=== PATIENT | female | born 2000 ===

== ENCOUNTER 2020-09-10 10:35 | Outpatient (REF) | payer OTHER, SELFPAY ==
[2020-09-10 13:52] LABS: MANUAL DIFF FLAG NO
[2020-09-10 13:59] LABS: Basophils Percent Auto 0.2 % (0-2); Eosinophils Absolute Auto 0.2 X10*3/uL (0.0-0.4); Eosinophils Percent Auto 2.9 % (0-4); Hemoglobin 12.7 g/dl (12.0-16.0); Imm Gran Abs Auto 0.07 X10*3/uL (0.00-0.03); Imm Gran Pct Auto 0.8 % (0.0-0.4); Lymphocytes Absolute Auto 2.5 X10*3/uL (1.2-4.9); Lymphocytes Percent Auto 30.3 % (20-40); Mean Corpuscular HGB Conc 32.6 g/dl (31.0-35.0); Mean Corpuscular Hemoglobin 29.7 pg (27.0-33.0); Mean Corpuscular Volume 91.3 fL (80-98); Mean Platelet Volume 11.8 fL (9.4-12.3); Monocytes Absolute Auto 0.7 X10*3/uL (0.1-1.2); Monocytes Percent Auto 7.8 % (2-11); Neutrophils Absolute Auto 4.8 X10*3/uL (2.0-8.3); Platelet Count 277 X10*3/uL (160-400); Red Blood Count 4.27 X10*6/uL (4.20-5.50); Red Cell Distribution Width 12.5 % (11.0-16.0); White Blood Count 8.3 X10*3/uL (4.8-10.8)
[2020-09-10 14:16] LABS: Cholesterol 159 mg/dL; Glucose Fasting 86 mg/dL (60-99); HDL Cholesterol 45 mg/dL; LDL Cholesterol Calculated 94 mg/dl; Triglycerides 102 mg/dL
[2020-09-10 14:39] LABS: TSH reflex Free T4 1.15 uIU/mL (0.32-4.0)
== END 2020-09-10 10:36 | disposition home or self-care (01) ==
LOC: HO.HMGCLDS 10:35
PROVIDERS: PCP Internal Medicine; Visit Provider Internal Medicine
DX: Z00.00 Encounter for general adult medical examination without abnormal findings (principal); J45.20 Mild intermittent asthma, uncomplicated; E66.9 Obesity, unspecified; Z83.49 Family history of other endocrine, nutritional and metabolic diseases
CPT/HCPCS: 36415; 80061; 82947; 84443; 85025

== ENCOUNTER 2024-04-25 12:59 | Outpatient (AMB) | payer OTHER, SELFPAY ==
--- NOTE | 2024-04-25 13:34 | A.OFFPC_ITS ---
Vital Signs 04/25/24 13:39 Height 5 ft 5 in Weight 223 lb BMI 37.1 BP 106/52 L Blood Pressure Location Rt brachial Position Sitting Respiration 16 Pulse 92 Pulse Source Pulse Oximeter Pulse Oximetry (%) 99 Oxygen Delivery Method Room Air Intake Visit Reasons: Transfer from Dr. Edmondson Intake Note: New patient visit Community Artist Required: No Allergies No Known Allergies Allergy (Verified 04/25/24 13:35) Medication List - Last Reconciled 04/25/24 by Chanel Monterroso PA-C albuterol sulfate 90 mcg/actuation (ProAir HFA) 2 puffs inhalation Q6H PRN aspirin 81 mg PO DAILY docosahexaenoic acid ( DHA) mg PO inhalational spacing device (Aerochamber MV spacer) As directed Tobacco use date assessed: 04/25/24 Dental Screening Dental Screen Date: 04/25/24 Did you have a dental visit in the last 12 months?: No Did you have a dental problem in the last 6 months where you did not have access to dental care?: No Was dental information given to patient?: Patient declined (needs dental insurance) HPI Transfer from Dr. Edmondson HPI Details History of Present Illness The patient is a 24-year-old female presenting with the need to establish care. She has a known history of asthma and a left ovarian cyst (since removed). The patient's current medical circumstances are significantly impacted by her , now at 27 weeks and 5 days gestation. This is her first , and she reports it as uncomplicated, with typical symptoms but no mention of any preexisting complication. She is aware of her due date, set for July 20, and assessments have been reported within normal limits, inclusive of non- anemic status, and negative diabetes screening. Following with cira. Additionally, her mental health screenings returned negative results for depression and anxiety. Health Maintenance - Discussion on vitamins. - Confirmation of regular OBGYN visits a nd satisfactory lab results. - Promotion of maintaining physical acti vity levels. - Discussion on family planning and ewelina stfeeding intentions. 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 - Residence: [place]. - Physical Activity: Maintains an active lifestyle, consistently on her feet. - Family planning considerations due to the cost of childcare. Review of Systems - Respiratory: Reports intermittent asth ma, rarely needs albuterol Physical Exam General: Well developed, well nourished, in no acute distress. Appears stated age. Cardiac: RRR, no murmurs Lungs: clear, equal breath sounds Extremities: no edema Neuro: alert, oriented x3, mood appropriate Plan - Asthma: No current need for an inhaler refill was requested, though she acknowledged breathing difficulty during . - : Continued routine care with OBGYN, due date monitoring, and mental and physical health follow-up plan. - Left Ovarian Cyst: Documented in medic al history; no current intervention required. - Establish primary care: Planned follow -up for a full physical exam after delivery, monitoring recovery, and potential lab work for comprehensive assessment. - Lifestyle recommendations: Continue to maintain an active lifestyle for optimal outcomes and encourage seeking support . - Pharmacological Consideration: Ensure medications align with patient's plans, discussion on consulting support if needed. [facility] Medical History (Updated 04/25/24 @ 13:56 by Chanel Monterroso PA-C) Obesity (BMI 30.0-34.9) Family history of thyroid disease Mild intermittent asthma in adult without complication Left ovarian cyst Surgical History S/P ovarian cystectomy Family History Mother Asthma Sister Asthma Acquired hypothyroidism Social History (Updated 04/25/24 @ 13:42 by Payal Lin CMA) Housing: House Alcohol intake: never Patient Tobacco Use Status: Never used Tobacco e-Cigarette/Vaping Use: Never Used Second Hand Smoke Exposure: No service: No Current occupational status: employed Current occupation: Teacher Current occupational exposures/hazards: No Cognitive needs: No Hearing needs: No Vision needs: Yes (glasses) Female Reproductive History Menstrual Age of Menarche: 9 Questionnaire PHQ-9 Over the last 2 weeks, how often have you been bothered by any of the following problems? 1. Little interest or pleasure in doing things: not at all 2. Feeling down, depressed, or hopeless: not at all 3. Trouble falling or staying asleep, or sleeping too much: not at all 4. Feeling tired or having little energy: not at all 5. Poor appetite or overeating: not at all 6. Feeling bad about yourself - or that you are a failure or have let yourself or your family down: not at all 7. Trouble concentrating on things, such as reading the newspaper or watching television: not at all 8. Moving or speaking so slowly that other people could have noticed. Or the opposite - being so fidgety or restless that you have been moving around a lot more than usual: not at all 9. Thoughts that you would be better off or of hurting yourself in some way: not at all Total score: 0 Depression Screening Interpretation: Negative Depression Screening Done: Yes 68281 - PHQ-9 Billing: Yes Source: Developed by Drs. Michael Sinclair, Nohemy Moreno, Dewayne Bueno and colleagues, with an educational power from [employer]. Thrive Questionnaire Date Thrive assessed: 04/23/24 I am a: Patient What is your living situation today?: I have a steady place to live Within the past 12 months, did the food you bought not last and you didn't have the money to get more?: Never true Within the past 12 months, did you worry whether your food would run out before you got money to buy more?: Never true Do you have trouble paying for medicines?: No Do you have trouble getting transportation to medical appointments?: No Do you have trouble paying your heating and electricity bill?: No Do you have trouble taking care of your child, family member or friend?: No Do you have trouble with day-to-day activities such as bathing, preparing meals, shopping, managing finances, etc.?: No Are you currently unemployed and looking for a job?: No Are you interested in more education?: No Please select the resources that you would like help with: None Currently or been in a relationship where the following occur: No concerns reported THRIVE Score: 0 AUDIT C Alcohol Use Questionnaire (AUDIT-C) 1. How often do you have a drink containing alcohol?: Never 3. How often do you have six or more drinks on one occasion?: Never Total Score: 0 DEEPTHI-7 AMB Questionnaire DEEPTHI-7 Date DEEPTHI - 7 assessed: 04/25/24 Feeling nervous, anxious, or on edge: 0 = Not at all Not being able to stop or control worryin = Not at all Worrying too much about different things: 0 = Not at all Trouble relaxin = Not at all Being so restless that it is hard to sit still: 0 = Not at all Becoming easily annoyed or irritable: 0 = Not at all Feeling afraid as if something awful might happen: 0 = Not at all Total DEEPTHI-7 score (0-4 normal; 5-9 mild; 10-14 moderate; 15-21 severe): 0 Source: Developed by Drs. Michael Sinclair, Nohemy Moreno, Dewayne Bueno and colleagues, with an educational power from [employer]. DEEPTHI-7 Assessment Billing DEEPTHI-7 Assessment Tool: DEEPTHI-7 Assessment 77955 Physical exam (Primary Care) Tobacco/Smoking Status: Tobacco use Status Tobacco use date assessed 04/25/24 04/25/24 13:36 Patient Tobacco Use Status Never used Tobacco 04/25/24 13:42 e-Cigarette/Vaping Use Never Used 04/25/24 13:42 PHQ-9: PHQ-9 Score PHQ-9: Total score 0 04/25/24 13:36 Depression Screening Interpretation: Negative Thrive Assessment: Date of Thrive Assessment Date Thrive assessed 04/23/24 04/25/24 13:36 Currently or been in a relationship where the following occur: No concerns reported Coding Level of Care Code New Pt Level 3 (20576) Complex EM visit Add On G2211 Diagnoses 27 weeks gestation of Z3A.27 Mild intermittent asthma in adult without complication J45.20 Additional Codes DEEPTHI-7 Assessment Billing - DEEPTHI-7 Assessment Tool: DEEPTHI-7 Assessment 96188 ([id number]) PHQ-9 - 10087 - PHQ-9 Billing: Yes ([id number]) Assessment & Plan Assessment & Plan (1) 27 weeks gestation of : Code(s): Z3A.27 - 27 weeks gestation of Category: Medical (2) Mild intermittent asthma in adult without complication: Code(s): J45.20 - Mild intermittent asthma, uncomplicated Category: Medical Plan . Orders: Orders Complete Blood Count Auto Diff Today Z00.00 - Encounter for general adult medical examination without abnormal findings TSH reflex Free T4 Today Z00.00 - Encounter for general adult medical examination without abnormal findings Comprehensive [place]. Panel Fast Today Z00.00 - Encounter for general adult medical examination without abnormal findings Lipid Panel Today Z00.00 - Encounter for general adult medical examination without abnormal findings Medications: Changed From albuterol sulfate 90 mcg/actuation (ProAir HFA) 2 puffs inhalation Q6H PRN 8.5 grams 2RF shortness of breath or wheezing J45.20 - Mild intermittent asthma, uncomplicated To albuterol sulfate 90 mcg/actuation 2 puffs inhalation Q6H PRN 8.5 grams 2RF shortness of breath or wheezing J45.20 - Mild intermittent asthma, uncomplicated
[2024-04-25 13:39] VITALS: BP 106/52; PULSE 92; RESP 16; O2SAT 99; BMI 37.1
--- OUTSIDE RECORDS SUMMARY | 2024-04-25 15:55 | XMS_ITS | Encounter Summary ---
Author Organization [facility] Address [address] [place] [address] Care Team Providers Care Metal Machinist Name Role Phone Rick Lewis Carolee Primary Care Provider [phone] Reason for Visit * Reason Comments Routine Visit Encounter Details Date Type Department Care Team (Late st Contact Info) Description 04/25/2024 9:30 AM EST [facility] [address] [place] [phone] Faviola Conway CNM [address] [place] [address] Encounter for supervision of normal first in second trimester (Primary Dx); Rh negative state in antepartum period; 27 weeks gestation of Social History Tobacco Use Types Packs/Day Years Used Date Smoking Tobacco: Never Smokeless Tobacco: Never Alcohol Use Standard Drinks/Week Comments Not Currently 0 (1 standard drink = 0.6 oz pur e alcohol) Estimated Date of Delivery Comme nts Yes 07/20/2024 Based on last me nstrual period of 10/14/2023 Sex and Gender Information Value Date Recorded Sex Assigned at Not on file Legal Sex Female 11:41 AM EDT Gender Identity Not on file Sexual Orientation Not on file Occupation Industry Job Start Date Job End Date teacher Not on file Not on file Not on file documented as of this encounter Last Filed Vital Signs Vital Sign Reading Time Taken Comments Blood Pressure 118/70 04/25/2024 9:20 AM EST Pulse - - Temperature - - Respiratory Rate - - Oxygen Saturation - - Inhaled Oxygen Concentration - - Weight 100 kg (221 lb 6.4 oz) 04/25/2024 9:20 AM EST Height - - Body Mass Index 36.84 01/20/2024 5:03 PM EST documented in this encounter Progress Notes * Faviola Conway CNM - 04/25/2024 9:30 AM EST OB Visit: 24 y.o. old female at 27w5d. Doing well. Appropriate FM. No LOF/VB/cramping. Her only new concern is none. Otherwise healthy . Her BP is reviewed and is Normal. Tdap was offered and accepted. This patient has not received Tdap during this . This patient has received syphilis t esting during this . This patient does not require a urine drug screen. Desires Tubal: No . Signs and symptoms of labor reviewed including reasons to call triage. Problem List reviewed and updated. RTO 2 weeks. Completing 28 wk labs today - after lab work will come back and receive rhogam [place] Depression Scale: In the Past 7 Days I have been able to laugh and see the funny side of things.: As much as I always could I have looked forward with enjoyment to things.: As much as I ever did I have blamed myself unnecessarily when things went wrong.: Not very often I have been anxious or worried for no good reason.: No, not at all I have felt scared or panicky for no good reason.: No, not at all Things have been getting on top of me.: No, most of the time I have coped quite well I have been so unhappy that I have had difficulty sleeping.: Not at all I have felt sad or miserable.: Not very often I have been so unhappy that I have been crying.: No, never The thought of harming myself has occurred to me.: Never [place] Depression Scale Total: 3 [place] SCREENING CHARGE (Clinic Only): [id number] Faviola Conway CNM on 04/25/2024 at 9:37 AM EST documented in this encounter Plan of Treatment Upcoming Encounters Date Type Department Care Team (Late st Contact Info) Description 05/11/2024 9:00 AM EDT Routine [facility]st[facility] [place] [phone] [facility] Conway [facility]M [address] [facility] [place] [address] 05/25/2024 9:00 AM EDT Routine Obstetrics [facility]necology [facility] [address] [phone] Faviola Conway CNM [address] [place] [address] 06/07/2024 9:00 AM EDT Routine Obstetrics [facility]necology - [facility] [place] [phone] Faviola Conway CNM [address] [place] [address] 06/22/2024 9:15 AM EDT Routine [facility] [place] [phone] Faviola Conway CNM [address] [place] [address] 06/28/2024 9:00 AM EDT Routine Obstetrics and [facility]necology - [facility] [address] [phone] Faviola Conway CNM [address] [place] [address] 07/06/2024 9:00 AM EDT Routine Obstetrics [facility]necology - [facility] [address] [place] [phone] Sophia Marin [address] [address] 07/13/2024 9:00 AM EDT Routine Obstetrics and Gynecology - [address] [phone] [address] 07/20/2024 9:00 AM EDT Routine Obstetrics and Gynecology - [address] [phone] Faviola Conway [address] [address] documented as of this encounter Results * Antibody screen (04/25/2024 10:16 AM EST) Antibody Screen Negative 04/25/2024 3:53 PM EST [facility] Blood Venous blood specimen / Unknown Venipuncture / Unknown 04/25/2024 10:16 AM EST 04/25/2024 10:16 AM EST us Faviola Conway [facility] BLOOD BANK TEST ORDERAB LES Final Result [facility] [address] [place] [address], documented in this encounter Visit Diagnoses Diagnosis Encounter for supervision of normal first in second trimester- Primary Rh negative state in antepartum period 27 weeks gestation of documented in this encounter Orders Immunization/Injection Count Last Ordered Date First Ordered Date TDAP TETANUS DIPTHERIA ACELL ULAR PERTUSSIS (BOOSTRIX; ADACEL) 7YO AND OLDER 1 04/25/2024 documented in this encounter Care Teams Metal Machinist Relationship Specialty Start Date End Date Carolee Duncan [address] [place] [address] PCP - General 02/15/24 documented as of this encounter
--- OUTSIDE RECORDS SUMMARY | 2024-04-25 15:55 | XMS_ITS | Clinical Summary ---
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 Medications PNV no.95/ferrous fum/folic ac ( ORAL) Vit-Fe Fumarate-FA ( Vitamin) 27-0.8 MG Tab Take 1 Tablet by mouth daily. Active aspirin 81 mg EC tabletIndication s:Obesity affecting in first trimester, unspecified obesity type Take 2 tablets (162 mg total) by mouth 1 (one) time each day. 60 tablet 3 4 07/02/19 25 Active Active Problems Problem Noted Date Diagnosed Date Urinary tract infection in m other during second trimester of 02/02/2024 Overview (02/02/2024): 01/20/24 treated in the ER with Keflex. 02/02/24 - reports no change in sx, urine culture collected Encounter for supervision of normal first in first trimester 01/23/2024 Overview (03/15/2024): 1. [facility] site: [address] 2. Delivery site: [facility] 3. Mobile Mommas: 4. Dating criteria: LMP only 5. Blood type: A-Negative 6. Genetic screening: Date: Result: Panorama: low risk, XY Horizon:ordered Nuchal: 01/12/2024 at 1:45pm Survey: normal MSAFP: negative 6. GBS: Date: 7. FOB name: Wade Patel, 8. Plans A. Epidural or other pain management - B. Labor support identified - Wade, her mom and his mom C. Tdap - Date: Flu - Date: D. Breast or Bottle feed: breast E. Baby's name - F. Circumcision - yes if male 9. Hospital Course: Rh negative state in antepartum period Overview (04/25/2024): Images from the original note were not included. A-Negative 04/25/24 - rhogam at 27w5d Maternal varicella, non-immune 12/23/2023 Obesity affecting 12/21/2023 Overview (01/03/2024): Pre-Preg BMI 35.61 HgbA1C and 1 hour GTT at initial labs: ordered 12/21/23 1hr Gluc 78 12/21/23 HgbA1c: 4.7 ASA 162mg at 12 weeks until delivery : to be ordered at IP visit Detailed anatomy ultrasound Repeat GTT 24-28 weeks if early is normal Pre-pre BMI 35-39.9: NST weekly at 37 weeks Pre-preg BMI >40: NST weekly at 34 weeks Pre-preg BMI >45: NST weekly at 32 weeks Growth US at 32 and 36 weeks for BMI >40 BMI of 50 by 28wks transfer to [facility] DVT prophylaxis- Lovenox if CS and BMI >35 Estimated Date of Delivery Comme nts Yes 07/20/2024 Based on last me nstrual period of 10/14/2023 Encounters Date Type Department Care Team Description 04/25/2024 9:30 AM EST Routine Obstetrics and Gynecology - [facility] [address] [place] [address] Faviola Conway CNM Encounter for supervision of normal first in second trimester (Primary Dx); Rh negative state in antepartum period; 27 weeks gestation of 03/27/2024 11:00 AM EST Routine Obstetrics and Gynecology - [address] [address] Sophia Marin CNM 23 weeks gestation of (Primary Dx); Encounter for supervision of normal first in second trimester; Encounter for screening of mother 03/15/2024 2:00 PM EST Ancillary Procedure Maternal Medicine - [address] [address] Encounter for anatomic survey 02/28/2024 9:00 AM EST Routine Obstetrics and Gynecology - [address] [address] Sophia Marin CNM Encounter for supervision of normal first in second trimester (Primary Dx); 19 weeks gestation of 02/08/2024 Telephone Obstetrics and Gynecology - [address] [address] Faviola Conway CNM Lab Results 02/02/2024 11:30 AM EST Routine Obstetrics and Gynecology - [address] [address] Faviola Conway CNM Encounter for supervision of normal first in second trimester (Primary Dx); Urinary tract infection in mother during second trimester of ; 15 weeks gestation of 02/02/2024 Telephone Obstetrics and Gynecology - [address] [address] Sophia Marin CNM Forms/questionnaires from Last 3 Months Immunizations Name Administration Dates Next Due Rho (D) Immune Globulin 04/25/2024 Tdap Tetanus diptheria acell ular pertussis (Boostrix; Adacel) 7yo and older 04/25/2024 Surgical History Surgery Date Site/Laterality Comments OTHER SURGICAL HISTORY PROCEDURE: MS DRAINAGE OVARIAN CYST UNI/BI SPX ABDOMINAL; COMMENT: 2017 TONSILLECTOMY PROCEDURE: HISTORICAL TONSILLECTOMY; COMMENT: as a child Medical History Medical History Date Comments Mild intermittent asthma, uncomplicated DX:Mild intermittent asthma, uncomplicated; COMMENT: albuterol prn Ovarian cyst DX:Ovarian cyst; COMMENT: left - s/p surgery 2017 Family History Medical History Relation Name Comments Breast cancer Aunt maternal aunt No Known Problems Father No Known Problems Half-Brother 1 Steven No Known Problems Half-Brother 2 Rom No Known Problems Half-Brother 3 No Known Problems Half-Sister 1 Anu No Known Problems Half-Sister 2 No Known Problems Half-Sister 3 Other: AIDS Maternal Grandfather Other: AIDS Maternal Grandmother Asthma Mother Dementia Paternal Grandmother Other: syphilis Paternal Grandmother Asthma Sister Griselda Thyroid disease Sister Griselda Cervical cancer Neg Hx Colon cancer Neg Hx Esophageal cancer Neg Hx Ovarian cancer Neg Hx Pancreatic cancer Neg Hx Prostate cancer Neg Hx Stomach cancer Neg Hx Uterine cancer Neg Hx Relation Name Status Comments Aunt Alive Father Alive Half-Brother 1 Steven Alive share mom Half-Brother 2 Rom Alive share dad Half-Brother 3 Alive share dad Half-Sister 1 Anu Alive share mom Half-Sister 2 Alive share dad Half-Sister 3 Alive share dad Maternal Grandfather Maternal Grandmother Mother Alive Paternal Grandfather Paternal Grandmother Alive Sister Griselda Alive Social History Tobacco Use Types Packs/Day Years [...] file Not on file Not on file Obstetrics History Para Term AB IAB SAB Ectopic Multiple Livin g Live Births 1 Date Outcome GA Total Labor Labor/2nd/3rd Weight Sex Type Anes PTL Hui A1 A5 Name Clin Current Summary Episode Dates Number of Fetuses Estimated Date of Delivery 01/03/2024 - Present (04/25/2024) 07/20/2024 (set by Blanca Zendejas MA on 01/03/2024 based on Last Menstrual Period on 10/14/2023) Dating Summary Based On BERTHA GA Diff Last Menstrual Period on 10/14/2023 07/20/2024 Working Vitals Pregravid Weight Height TWG (As of 04/25/2024) Pregrav id BMI 96.9 kg (213 lb 9.6 oz) 3.538 kg (7 lb 12 .8 oz) Notes Progress Notes - Routine Pre leslie - 04/25/2024 - GA:27w5d 04/25/2024 - 27w5d - Faviola Conway CNM OB Visit: 24 y.o. old female at 27w5d. Doing well. Appropriate FM. No LOF/VB/cramping. Her only new concern is none. Otherwise healthy . Her BP is reviewed and is Normal. Tdap was offered and accepted. This patient has not received Tdap during this . This patient has received syphilis testing during this . This patient does not require a urine drug screen. Desires Tubal: No . Signs and symptoms of labor reviewed including reasons to call triage. Problem List reviewed and updated. RTO 2 weeks. Completing 28 wk labs today - after lab work will come back and receive rhogam [place] Depression Scale: In the Past 7 Days [...] harming myself has occurred to me.: Never [place] Depression Scale Total: 3 [place] SCREENING CHARGE (Clinic Only): [id number] Faviola Conway CNM on 04/25/2024 at 9:37 AM EST Progress Notes - Routine Pre - 03/27/2024 - GA:23w4d 03/27/2024 - - Sophia Marin CNM Subjective Chief Complaint Patient presents with Routine Visit Laurie Huizar is a 24 y.o. at 23w4d with a working estimated date of delivery of 07/20/2024, by Last Menstrual Period who presents for a routine visit. She denies vaginal bleeding, leakage of fluid, decreased movements, or contractions. Reports some bilateral lower abdominal pain and constipation for about 1 month. States she has tried prune juice and laxatives without relief. States she is hydrating well. HPI Review of Systems The following portions of the patient's chart were reviewed in this encounter and updated as appropriate: Allergies Objective Physical Exam Weight: 98.7 kg (217 lb 9.6 oz) Expected Total Weight Gain: 5 kg (11 lb)-9 kg (19 lb) Pregravid BMI: 35.54 BP: 128/81 OBGyn Exam Labs Urine dip: , , , Hemoglobin Date Value Ref Range Status 01/20/2024 12.4 11.5 - 16.0 g/dL Final Hematocrit Date Value Ref Range Status 01/20/2024 36.2 35.0 - 47.0 % Final No results found for: PAPPA , AFP , HCG , ESTRIOL , INHBA No results found for: GLUF , GLUT1 , [id number] , [id number] Assessment/Plan 23 weeks gestation of (Primary) Encounter for supervision of normal first in second trimester - CBC and differential; Future - Glucose tolerance test, 1h gestation; Future Encounter for screening of mother - Treponema pallidum antibody with reflex to RPR and particle agglutination; Future Progress Notes - Routine Pre - 02/28/2024 - GA:19w4d 02/28/2024 - - Sophia Marin CNM Subjective Chief Complaint Patient presents with Routine Visit Laurie Huizar is a 24 y.o. at 19w4d with a working estimated date of delivery of 07/20/2024, by Last Menstrual Period who presents for a routine visit. She denies vaginal bleeding, leakage of fluid, decreased movements, or contractions. Boy, circ, breast and bottle Review of Systems: normal The following portions of the patient's chart were reviewed in this encounter and updated as appropriate: Allergies Meds Objective Physical Exam Weight: 98.3 kg (216 lb 12.8 oz) Expected Total Weight Gain: 5 kg (11 lb)-9 kg (19 lb) Pregravid BMI: 35.54 BP: 106/64 Heart Rate: 145 Fundal Height (cm): 19 cm OBGyn Exam Labs Urine dip: , , , Hemoglobin Date Value Ref Range Status 01/20/2024 12.4 11.5 - 16.0 g/dL Final Hematocrit Date Value Ref Range Status 01/20/2024 36.2 35.0 - 47.0 % Final No results found for: PAPPA , AFP , HCG , ESTRIOL , INHBA No results found for: GLUF , GLUT1 , [id number] , [id number] Assessment/Plan Encounter for supervision of normal first in second trimester (Primary) 19 weeks gestation of Progress Notes - Routine Pre leslie - 02/02/2024 - GA:15w6d 02/02/2024 - 15w6d - Faviola Conway CNM OB Visit: 24 y.o. old female at 15w6d. Doing well. no FM yet. No LOF/VB/cramping. Her only new concern is was seen in the ER 01/20/24 for pelvic/ back pain - had UTI, sent with Keflex, completed ABX but continues to have sx, urine culture ordered, hortensia treat with appropriate ABX. Otherwise healthy . Her BP is reviewed and is Normal. Aneuploidy screening reviewed; it is Normal. MSAFP ordered. To complete between 16-22 wks. She does not require a urine drug screen. Signs and symptoms of labor reviewed including reasons to call triage. Problem List reviewed and updated. RTO 4 weeks. Faviola Conway CNM on 02/02/2024 at 11:31 AM EST Progress Notes - Initial Pre - 01/03/2024 - GA:11w4d 01/03/2024 - w4d - Faviola Conway CNM OB 12 week appt IP: S: Laurie is a 23 y.o. year old here for IP visit with her self . Her is unplanned. She and the father of the baby are happy. Patient's last menstrual period was 10/14/2023. She is certain of her LMP with regular cycles. is currently dated by LMP only. She complains of back pain. Hx of back pain, intermittent. She denies vaginal bleeding or cramping. Flu vaccine: exception : will offer at CT FHR 150's via doppler S=D O: Blood pressure 131/79, weight 97.6 kg (215 lb 3.2 oz), last menstrual period 10/14/2023. See OB physical and labs. No results found for: ABORH - A neg No results found for: RH A: at 11w4d weeks gestation. 1. Supervision of normal first , antepartum 2. Obesity affecting in first trimester, unspecified obesity type 3. Screening examination for STD (sexually transmitted disease) 4. 11 weeks gestation of 5. Rh negative state in antepartum period P: Pap obtained today. Genprobe obtained today. Advised to start bASA at 12 wks for risk factors - primip and pre preg BMI Oriented to THoNE MG and anticipated course. Discussed collaborative practice and [facility] delivery. Reviewed healthy eating and normal weight gain in . Encouraged patient to push PO fluids. Counseled about warning signs of the first trimester and how to contact personal service representative provider. Discussed the benefits of breast feeding and strongly encouraged to consider this. Counseled regarding the diagnosis of anomalies. She was offered a referral to maternal medicine for nuchal lucency/[place] testing. She accepts the referral. Scheduled 01/12/24 RTO 4 weeks. The patient does not require anesthesia consult. This patient's VTE risk status is low. Faviola Conway CNM on 01/03/2024 at 10:21 AM EST Last Filed Vital Signs Vital Sign Reading Time Taken Comments Blood Pressure 118/70 04/25/2024 9:20 AM EST Pulse 76 01/21/2024 5:26 AM EST Temperature 36.9 ??C (98.4 ??F) 01/21/2024 5:26 AM ES T Respiratory Rate 18 01/21/2024 5:26 AM EST Oxygen Saturation 99% 01/21/2024 5:26 AM EST Inhaled Oxygen Concentration - - Weight 100 kg (221 lb 6.4 oz) 04/25/2024 9:20 AM EST Height 165.1 cm (5' 5 ) 01/20/2024 5:03 PM EST Body Mass Index 36.84 01/20/2024 5:03 PM EST Plan of Treatment Upcoming Encounters Date Type Department Care Team (Late st Contact Info) Description 05/11/2024 9:00 AM EDT Routine Obstetrics [facility]necology - [facility] [address] [place] [address] Faviola Conway CNM [address] [facility] [place] [address] 05/25/2024 9:00 AM EDT Routine Obstetrics and Gynecology - [facility] [address] [place], [place] [address] [phone] Faviola Conway CNM [address] [facility] [place] [place] [address] 06/07/2024 9:00 AM EDT Routine Obstetrics and Gynecology - [facility] [address] [facility] [place] [place] [phone] Faviola Conway CNM [address] [facility] [place] [address] 06/22/2024 9:15 AM EDT Routine Ob[facility]s [facility] - [facility] [phone] [address] 06/28/2024 9:00 AM EDT Routine Obstetrics and Gynecology - [facility] [address] [address] 07/06/2024 9:00 AM EDT Routine Obstetrics and Gynecology - [facility] [phone] [address] 07/13/2024 9:00 AM EDT Routine Obstetrics and Gynecology - [facility] [phone] [address] 07/20/2024 9:00 AM EDT Routine [facility] [address] [place] [address] [address] Health Maintenance Due Date Last Done Comments HPV Vaccines (1 - 3-dose series) 01/26/2015 Hepatitis B Vaccines (1 of 3 - 19+ 3-dose series) 01/26/2019 COVID-19 Vaccine (2023-2 5 season) 2023 Influenza Vaccine (#1) 2023 Cholesterol Screening (Lipid Panel) 12/16/2023 Depression Screening 12/16/2023 Hepatitis C Screening 12/16/2023 Social Influencers of Health Screening 12/16/2023 Gonorrhea/Chlamydia Screening 01/02/2025 01/03/2024 Cervical Cancer Screening: P ap Smear 01/02/2027 01/03/2024 DTaP,Tdap,and Td Vaccines (2 - Td or Tdap) 04/25/2034 04/25/2024 HIV Screening Completed 12/21/2023 HIB Vaccines Aged Out No longer eligi ble based on patient's age to complete this topic Hepatitis A Vaccines Aged Out No long er eligible based on patient's age to complete this topic IPV Vaccines Aged Out No longer eligi ble based on patient's age to complete this topic Meningococcal ACWY Vaccine Aged Out N o longer eligible based on patient's age to complete this topic Meningococcal B Vacine Aged Out No lo nger eligible based on patient's age to complete this topic Pneumococcal Vaccine: Pediat rics (0 to 5 Years) and At-Risk Patients (6 to 64 Years) Aged Out No longer eligi ble based on patient's age to complete this topic RSV Immunization Patients Un inocencia 20 months Aged Out No longer eligible b ased on patient's age to complete this topic Procedures Procedure Name Priority Date/Time Associated Diagnosis Comments CBC WITH AUTO DIFFERENTIAL Routine 04/25/2024 10:16 AM EST Encounter for supervision of normal first in second trimester GTT GESTATIONAL 1 HOUR Routine 10:16 AM EST Encounter for supervision of normal first in second trimester TREPONEMA PALLIDUM ANTIBODY WITH REFLEX TO RPR AND PARTICLE AGGLUTINATION Routine 04/25/2024 10:16 AM EST Encounter for screening of mother CBC AND DIFFERENTIAL Routine 04/25/2024 10:16 AM EST Encounter for supervision of normal first in second trimester GLUCOSE TOLERANCE TEST, 1H GESTATION Routine 04/25/2024 10:16 AM EST Encounter for supervision of normal first in second trimester ANTIBODY SCREEN Routine 04/25/2024 10:16 AM EST Rh negative state in antepartum period US OB DETAILED SINGLE OR FIRST GESTATION Routine 03/15/2024 2:41 PM EST Encounter for anatomic survey ALPHA FETOPROTEIN, MATERNAL Routine 02/02/2024 11:59 AM EST Encounter for supervision of normal first in second trimester CULTURE URINE Routine 02/02/2024 11:59 AM EST Urinary tract infection in mother during second trimester of PAP SMEAR Routine 01/03/2024 11:44 AM EST Screening for cervical cancer CHLAMYDIA TRACHOMATIS AND NEISSERIA GONORRHOEAE PCR Routine 01/03/2024 11:44 AM EST Screening examination for STD (sexually transmitted disease) from Last 3 Months or Most Recently Relevant to Health Maintenance Results * Treponema pallidum antibody with reflex to RPR and particle agglutination (04/25/2024 10:16 AM EST) T. Pallidum Antibodies Negative Negative LAB CHEMISTRY METHOD 04/25/2024 3:28 PM EST [facility] Blood Venous blood specimen / Unknown Venipuncture / Unknown 04/25/2024 10:16 AM EST 04/25/2024 10:16 AM EST us Sophia MOORE LAB BLOOD ORDERABLES Final R esult [facility] [address] [place] [address], [place] [phone] * GTT gestational 1 hour (04/25/2024 10:16 AM EST) Glucose, 1 HR Gestational 72 See Comment mg/dL LAB CHEMISTRY METHOD 04/25/2024 3:12 PM EST [facility] Blood Venous blood specimen / Unknown Venipuncture / Unknown 04/25/2024 10:16 AM EST 04/25/2024 10:16 AM EST Narrative [facility] - 04/25/2024 3:12 PM EST Gestational Diabetes Challenge Reference Range: 1 hour Glucose <140 mg/dL Sophia MOORE LAB BLOOD ORDERABLES Final R esult [facility] [address] [place] [address], * (ABNORMAL) CBC auto differential (04/25/2024 10:16 AM EST) WBC 10.6 4.8 - 10.8 K/mcL LAB HEMETOLOGY METHOD 04/25/2024 2:44 PM [facility] RBC 3.60(L) 3.80 - 4.80 M/mcL LAB HEMETOLOGY METHOD 04/25/2024 2:44 PM [facility] Hemoglobin 11.3(L) 11.5 - 16.0 g/dL LAB HEMETOLOGY METHOD 04/25/2024 2:44 PM [facility] Hematocrit 34.6(L) 35.0 - 47.0 % LAB HEMETOLOGY METHOD 04/25/2024 2:44 PM [facility] MCV 95.8 79.0 - 98.0 FL LAB HEMETOLOGY METHOD 04/25/2024 2:44 PM [facility] MCH 31.3 27.0 - 32.0 pcg LAB HEMETOLOGY METHOD 04/25/2024 2:44 PM [facility] MCHC 32.7 32.0 - 37.0 g/dL LAB HEMETOLOGY METHOD 04/25/2024 2:44 PM [facility] RDW 13.8 11.0 - 15.0 % LAB HEMETOLOGY METHOD 04/25/2024 2:44 PM [facility] Platelets 200 130 - 400 K/mcL LAB HEMETOLOGY METHOD 04/25/2024 2:44 PM [facility] MPV 11.6(H) 7.0 - 11.0 FL LAB HEMETOLOGY METHOD 04/25/2024 2:44 PM [facility] NRBC 0.0 <1.0 % LAB HEMETOLOGY METHOD 04/25/2024 2:44 PM [facility] NRBC Absolute 0.00 <0.10 K/mcL LAB HEMETOLOGY METHOD 04/25/2024 2:44 PM [facility] Neutrophils Relative 69.9 % LAB HEMETOLOGY METHOD 04/25/2024 2:44 PM [facility] Lymphocytes Relative 16.9 % LAB HEMETOLOGY METHOD 04/25/2024 2:44 PM [facility] Monocytes Relative 6.6 % LAB HEMETOLOGY METHOD 04/25/2024 2:44 PM [facility] Eosinophils Relative 1.9 % LAB HEMETOLOGY METHOD 04/25/2024 2:44 PM [facility] Basophils Relative 0.5 % LAB HEMETOLOGY METHOD 04/25/2024 2:44 PM [facility] Immature Granulocytes Relative 4.2 % LAB HEMETOLOGY METHOD 04/25/2024 2:44 PM [facility] Neutrophils Absolute 7.39(H) 1.50 - 7.00 K/mcL LAB HEMETOLOGY METHOD 04/25/2024 2:44 PM [facility] Lymphocytes Absolute 1.78 1.00 - 5.00 K/mcL LAB HEMETOLOGY METHOD 04/25/2024 2:44 PM [facility] Monocytes Absolute 0.70 0.20 - 1.00 K/mcL LAB HEMETOLOGY METHOD 04/25/2024 2:44 PM [facility] Eosinophils Absolute 0.20 0.00 - 0.50 K/[facility] LAB HEMETOLOGY METHOD 04/25/2024 2:44 PM EST [facility] Basophils Absolute 0.05 0.00 - 0.20 K/[facility] LAB HEMETOLOGY METHOD 04/25/2024 2:44 PM EST [facility] Immature Granulocytes Absolute 0.44(H) 0.00 - 0.03 K/[facility] LAB HEMETOLOGY METHOD 04/25/2024 2:44 PM EST [facility] Blood Venous blood specimen / Unknown Venipuncture / Unknown 04/25/2024 10:16 AM EST 04/25/2024 10:16 AM EST Sophia Marin [facility] BLOOD ORDERABLES Final R esult Performing Organization Address City/[facility]/ZIP Co de Phone Number [facility] [address] [place] [address], [place] [phone] * Antibody screen (04/25/2024 10:16 AM EST) Antibody Screen Negative 04/25/2024 3:53 PM EST [facility] Blood Venous blood specimen / Unknown Venipuncture / Unknown 04/25/2024 10:16 AM EST 04/25/2024 10:16 AM EST Faviola Conway [facility] BLOOD BANK TEST ORDERAB LES Final Result [facility] [address] [place] [address], [place] [phone] * US OB Detailed Single or First Gestation (03/15/2024 2:41 PM EST) Anatomical Region Laterality Modality Body Ultrasound 03/15/2024 1:52 PM EST Narrative 03/15/2024 3:53 PM EST OBSTETRICS REPORT ?(Signed Final 03/15/2024 03:53 pm) PATIENT INFO: ID #: ? [id number] ? : ??[birth year] (24 yrs)(F) Name: ? LAURIE PYLE ?Visit Date: 03/15/2024 01:52 pm ? BHUPENDRA PERFORMED BY: Attending: ?Nickie Canseco MD Performed By: ? Matt Cline RDMS Referred By: ?Faviola Conway C.N.M Ref. Address: ? [address] ? [place] [address] Location: ? [facility] SERVICE(S) PROVIDED: US Level II complete (Targeted OB) ?36870 INDICATIONS: Obesity complicating , 2nd ?O99.212 trimester Morbid obesity ? E66.01 Encounter for screening for ?Z36.3 malformations 21 weeks gestation of ?Z3A.21 TECHNIQUE/SCAN QUALITY: Technique: ?? Transabdominal Scan ? Satisfactory Quality: OB HISTORY: : ?1 ? Term: ?? 0 VITAL SIGNS: Weight (lb) ?? Height ?BMI 216 ? 5'5 ?35.94 EVALUATION: Number Of Fetuses: ? 1 Heart Rate(bpm): ?? 158 Cardiac Activity: ?Observed Presentation: ?Cephalic Placenta Location: ?Posterior Appearance: ?Grade 1 Relation to CVX: ? No previa Cord Insertion: ?Normal appearance Amniotic Fluid MARINA FV: ?Within Normal Limits Comment: ?A >2 x 2 cm pocket of fluid is noted. BIOMETRY: BPD: ?51.8 ??mm ? G.Age: ?? 21w 5d ?42 ??% HC: ?198.5 ??mm ? G.Age: ?? 22w 0d ?46 ??% AC: ?167.2 ??mm ? G.Age: ?? 21w 5d ?38 ??% FL: ? 36.9 ??mm ? G.Age: ?? 21w 5d ?36 ??% HUM: ?37.7 ??mm ? G.Age: ?? 23w 2d ?84 ??% CER: ?23.6 ??mm ? G.Age: ?? 21w 6d ?48 ??% NFT: ?4.01 ??mm NB: ? 6.23 ??mm ? 17 ??% ? > 1 ??MoM LV: ?7.6 ??mm CM: ?7.7 ??mm OOD: ?34.6 ??mm ? G.Age: ?? 20w 5d ?41 ??% CI: ? 69.41 ??% ? 70 - 86 FL/HC: ? 18.6 ??% ? 18.4 - 20.2 HC/AC: ? 1.19 ?1.06 - 1.25 FL/BPD: ?71.2 ??% ? 71 - 87 FL/AC: ? 22.1 ??% ? 20 - Est. FW: ? 449 ??gm ? 1 lb ? 39 ??% GESTATIONAL AGE: LMP: ? 21w 6d ?Date: ??10/14/23 ?BERTHA: ?? 07/20/24 U/S Today: ? 21w 6d ?BERTHA: ?? 07/20/24 Best: ?21w 6d ?? Det. By: ??LMP ??(10/14/23) ?BERTHA: ?? 07/20/24 DETAILED ANATOMY: Head / Neck Cranial Vault: ?Normal appearance Cavum Septi Pellucidi: ??Normal appearance Parenchyma: ? Normal appearance R. Lat. Ventricle: ?Normal appearance L. Lat. Ventricle: ?Normal appearance Corpus Callosum: ?Suboptimal views Midline Falx: ? Normal appearance R. Choroid Plexus: ?Normal appearance L. Choroid Plexus.: ? Normal appearance Cerebellum: ? Normal appearance CCisterna Magna: ?Normal appearance Nuchal Fold: ?Normal appearance Neck: ? Normal appearance Face Face Profile: ? Normal appearance Nasal Bone: ? Normal appearance Coronal Face: ? Normal appearance Lips: ? Normal appearance Nose: ? Normal appearance Lenses: ? Normal appearance Orbits: ? Normal appearance Palate: ? Suboptimal views Heart Cardiac Activity: ? Normal appearance Cardiac Rhythm: ? Normal appearance 4 Chamber View: ? Normal appearance R. Outflow Tract: ? Normal appearance L. Outflow Tract: ? Normal appearance Interventr. Septum: ? Normal appearance 3 Vessel View: ?Normal appearance 3V Trachea View: ?Normal appearance Cardiac Situs: ?Normal appearance Aortic ??Arch: ? Normal appearance SVC: ?Normal appearance IVC: ?Normal appearance Ductal ??Arch: ? Normal appearance Crossing G. Ves.: ? Normal appearance Comment: ? The cardiac axis is 47.21 degrees Thorax Lungs: ?Normal appearance Cardiac [place]: ? Normal appearance Diaphragm: ?Normal appearance Thoracic Contour: ? Normal appearance Abdomen Situs: ?Normal appearance Stomach: ?Normal appearance Bowel: ?Normal appearance Liver: ?Normal appearance Abdominal Wall: ? Normal appearance Urinary Bladder: ?Normal appearance R. Kidney: ?Normal appearance L. Kidney: ?Normal appearance R. Renal Artery: ?Normal appearance L. Renal Artery: ?Normal appearance Umbilical Cord: ? Normal Appearance UC Vessel Num.: ? Normal 3VC Cord Insertion: ? Normal appearance Spine Cervical: ? Normal appearance Thoracic: ? Normal appearance Lumbar: ? Normal appearance Sacral: ? Normal appearance Shape / Curvature: ?Normal appearance Over. Soft Tissue: ?Normal appearance Vertebral Body: ? Normal appearance Extremities R. Humerus: ? Normal appearance L. Humerus: ? Normal appearance R. Forearm: ? Normal appearance L. Forearm: ? Normal appearance R. Hand: ?Normal appearance L. Hand: ?Normal appearance R. Femur: ? Normal appearance L. Femur: ? Normal appearance R. Lower Leg: ? Normal appearance L. Lower Leg: ? Normal appearance R. Foot: ?Normal appearance L. Foot: ?Normal appearance Other Genitalia: ?Male CERVIX UTERUS ADNEXA: Cervix Appears closed Right Ovary Size(cm) ? 3.58 ?? x ?? 2.48 ?? x ??1.79 ?Vol(ml): 8.32 Normal in size and appearance. It is found between the uterus and the pelvic sidewall. Left Ovary Size(cm) ? 3.22 ?? x ?? 3.71 ?? x ??1.38 ?Vol(ml): 8.63 Normal in size and appearance. It is found between the uterus and the pelvic sidewall. COMMENTS: Ms. Huizar is being seen for a detailed ultrasound for a BMI of 35. - Her medical history is not contributory. - She had cell free DNA screening. ??Results are low- risk for all conditions assessed. - Ultrasound findings: The biometry and anatomical survey are appropriate for the gestational age. ??There are no markers of aneuploidy. - The patient declined vaginal ultrasound to assess cervical length for risk of . - Plan: No additional ultrasounds have been scheduled. Follow up as clinically indicated. Nickie Canseco MD Electronically Signed Final Report ?? 03/15/2024 03:53 pm Procedure Note Nickie Canseco MD - 03/15/2024 OBSTETRICS REPORT (Signed Final 03/15/2024 03:53 pm) PATIENT INFO: ID #: [id number] : [birth year] (24 yrs)(F) Name: LAURIE PYLE Visit Date: 03/15/2024 01:52 pm [facility] PERFORMED BY: Attending: Nickie Canseco MD Performed By: Matt Cline [facility] Referred By: Faviola [place] C.N.M Ref. Address: [address] [place] [address] Location: [facility]) SERVICE(S) PROVIDED: US Level II complete (Targeted OB) 92618 INDICATIONS: Obesity complicating , 2nd O99.212 trimester Morbid obesity E66.01 Encounter for screening for Z36.3 malformations 21 weeks gestation of Z3A.21 TECHNIQUE/SCAN QUALITY: Technique: Transabdominal Scan Satisfactory Quality: OB HISTORY: : 1 Term: 0 VITAL SIGNS: Weight (lb) Height BMI 216 5'5 35.94 EVALUATION: Number Of Fetuses: 1 Heart Rate(bpm): 158 Cardiac Activity: Observed Presentation: Cephalic Placenta Location: Posterior Appearance: Grade 1 Relation to CVX: No previa Cord Insertion: Normal appearance Amniotic Fluid MARINA FV: Within Normal Limits Comment: A >2 x 2 cm pocket of fluid is noted. BIOMETRY: BPD: 51.8 mm G.Age: 21w 5d 42 % HC: 198.5 mm G.Age: 22w 0d 46 % AC: 167.2 mm G.Age: 21w 5d 38 % FL: 36.9 mm G.Age: 21w 5d 36 % HUM: 37.7 mm G.Age: 23w 2d 84 % CER: 23.6 mm G.Age: 21w 6d 48 % NFT: 4.01 mm NB: 6.23 mm 17 % > 1 MoM LV: 7.6 mm CM: 7.7 mm OOD: 34.6 mm G.Age: 20w 5d 41 % CI: 69.41 % 70 - 86 FL/HC: 18.6 % 18.4 - 20.2 HC/AC: 1.19 1.06 - 1.25 FL/BPD: 71.2 % 71 - 87 FL/AC: 22.1 % 20 - 24 Est. FW: 449 gm 1 lb 39 % GESTATIONAL AGE: LMP: 21w 6d Date: 10/14/23 BERTHA: 07/20/24 U/S Today: w 6d BERTHA: 07/20/24 Best: w 6d Det. By: LMP (10/14/23) BERTHA: 07/20/24 DETAILED ANATOMY: Head / Neck Cranial Vault: Normal appearance Cavum Septi Pellucidi: Normal appearance Parenchyma: Normal appearance R. Lat. Ventricle: Normal appearance L. Lat. Ventricle: Normal appearance Corpus Callosum: Suboptimal views Midline Falx: Normal appearance R. Choroid Plexus: Normal appearance L. Choroid Plexus.: Normal appearance Cerebellum: Normal appearance CCisterna Magna: Normal appearance Nuchal Fold: Normal appearance Neck: Normal appearance Face Face Profile: Normal appearance Nasal Bone: Normal appearance Coronal Face: Normal appearance Lips: Normal appearance Nose: Normal appearance Lenses: Normal appearance Orbits: Normal appearance Palate: Suboptimal views Heart Cardiac Activity: Normal appearance Cardiac Rhythm: Normal appearance 4 Chamber View: Normal appearance R. Outflow Tract: Normal appearance L. Outflow Tract: Normal appearance Interventr. Septum: Normal appearance 3 Vessel View: Normal appearance 3V Trachea View: Normal appearance Cardiac Situs: Normal appearance Aortic Arch: Normal appearance SVC: Normal appearance IVC: Normal appearance Ductal Arch: Normal appearance Crossing G. Ves.: Normal appearance Comment: The cardiac axis is 47.21 degrees Thorax Lungs: Normal appearance Cardiac [place]: Normal appearance Diaphragm: Normal appearance Thoracic Contour: Normal appearance Abdomen Situs: Normal appearance Stomach: Normal appearance Bowel: Normal appearance Liver: Normal appearance Abdominal Wall: Normal appearance Urinary Bladder: Normal appearance R. Kidney: Normal appearance L. Kidney: Normal appearance R. Renal Artery: Normal appearance L. Renal Artery: Normal appearance Umbilical Cord: Normal Appearance UC Vessel Num.: Normal 3VC Cord Insertion: Normal appearance Spine Cervical: Normal appearance Thoracic: Normal appearance Lumbar: Normal appearance Sacral: Normal appearance Shape / Curvature: Normal appearance Over. Soft Tissue: Normal appearance Vertebral Body: Normal appearance Extremities R. Humerus: Normal appearance L. Humerus: Normal appearance R. Forearm: Normal appearance L. Forearm: Normal appearance R. Hand: Normal appearance L. Hand: Normal appearance R. Femur: Normal appearance L. Femur: Normal appearance R. Lower Leg: Normal appearance L. Lower Leg: Normal appearance R. Foot: Normal appearance L. Foot: Normal appearance Other Genitalia: Male CERVIX UTERUS ADNEXA: Cervix Appears closed Right Ovary Size(cm) 3.58 x 2.48 x 1.79 Vol(ml): 8.32 Normal in size and appearance. It is found between the uterus and the pelvic sidewall. Left Ovary Size(cm) 3.22 x 3.71 x 1.38 Vol(ml): 8.63 Normal in size and appearance. It is found between the uterus and the pelvic sidewall. COMMENTS: Ms. Huizar is being seen for a detailed ultrasound for a BMI of 35. - Her medical history is not contributory. - She had cell free DNA screening. Results are low- risk for all conditions assessed. - Ultrasound findings: The biometry and anatomical survey are appropriate for the gestational age. There are no markers of aneuploidy. - The patient declined vaginal ultrasound to assess cervical length for risk of . - Plan: No additional ultrasounds have been scheduled. Follow up as clinically indicated. Nickie Canseco MD Electronically Signed Final Report 03/15/2024 03:53 pm us Faviola [place] [facility] IMG OB US PROCEDURES Final Result * Alpha fetoprotein, maternal (02/02/2024 11:59 AM EST) Physician Phone Number Not Provided 02/06/2024 1:06 PM EST [facility] Notes to Laboratory Not Provided 02/06/2024 1:06 PM EST [facility] Weight (lbs) 211 02/06/2024 1:06 PM EST [facility] Expected Due Date (MM/DD/YYYY) [id number] 02/06/2024 1:06 PM EST [facility] Expected Due Date Based On? LMP 02/06/2024 1:06 PM EST [facility] Twin ? No - Singletons 02/06/2024 1:06 PM EST [facility] Race Not Provided 02/06/2024 1:06 PM EST [facility] Insulin Dependent Diabetic? No 02/06/2024 1:06 PM EST [facility] Does Patient Currently Smoke Cigarettes? No 02/06/2024 1:06 PM EST [facility] Repeat Screen for Current ? No 02/06/2024 1:06 PM EST [facility] Previous w/ Neural Tube Defect? No 02/06/2024 1:06 PM EST [facility] IVF ? No 02/06/2024 1:06 PM EST [facility] Screen Result Negative Negative 02/06/2024 1:06 PM EST [facility] Age at BERTHA (years) 24 02/06/2024 1:06 PM EST [facility] Gestational Age (weeks) 15 02/06/2024 1:06 PM EST [facility] Gestational Age (days) 3 02/06/2024 1:06 PM EST [facility] Weight (lbs) 211 02/06/2024 1:06 PM EST [facility] Multiple Gestation Single 02/06/2024 1:06 PM EST [facility] Ethnic Origin Not Provided 1:06 PM EST [facility] Insulin Dependent Diabetes None 02/06/2024 1:06 PM EST [facility] Smoker? No 02/06/2024 1:06 PM EST [facility] AFP 21.5 ng/mL 02/06/2024 1:06 PM EST [facility] AFP MOM 0.89 02/06/2024 1:06 PM EST [facility] Gestational Age Method BERTHA 02/06/2024 1:06 PM EST [facility] Comment:The gestational age is based on an BERTHA of 07/23/24. Interpretation SeeBelow 02/06/2024 1:06 PM EST [facility] Comment: This is the initial sample received at [facility] for MSAFP SCREEN NEGATIVE FOR NEURAL TUBE DEFECTS. Additional Test Information: The MSAFP does not provide a risk estimate or a diagnosis. Incorrect or missing information may considerably alter results. A positive report is indicated when the AFP MOM is greater than or equal to 2.20. Maternal weights less than 65 lbs or greater than 440 lbs are truncated and the AFP MOM is not adjusted beyond those limits. Assessment is adjusted for insulin-dependent diabetic status, weight, race and smoking. Previous pregnancies affected with a neural tube defect may significantly affect results. Test performed at [facility], [address] , [place], [place] ??[address] ? [phone] Melody Davalos MD, PhD - Nps Blood Venous blood specimen / Unknown Venipuncture / Unknown 02/02/2024 11:59 AM EST 02/02/2024 12:02 PM EST [facility] Zoraida [facility] BLOOD ORDERABLES Final Result [facility] [address] [place] [address] * Culture urine (02/02/2024 11:59 AM EST) Pathologist [facility] Culture, Urine No growth 02/03/2024 11:28 AM EST [facility] Urine Urine specimen obtained by clean catch procedure / Unknown Non-blood Collection / Unknown 02/02/2024 11:59 AM EST 02/02/2024 12:02 PM EST [facility] MICROBIOLOGY - GENERAL ORDERABLES Final Result [facility] [address] [place] [address], [place] [phone] * Chlamydia trachomatis and Neisseria gonorrhoeae molecular study (01/03/2024 11:44 AM EST) Neisseria gonorrhoeae PCR Negative Negative LAB MOLECULAR DIAGNOSTICS METHOD 01/05/2024 11:32 AM EST [facility] Chlamydia trachomatis PCR Negative Negative LAB MOLECULAR DIAGNOSTICS METHOD 01/05/2024 11:32 AM EST [facility] Swab Vaginal structure / Unknown Non-blood Collection / Unknown 01/03/2024 11:44 AM EST 01/05/2024 8:50 AM EST Faviola [place] [facility] MICROBIOLOGY - GENERAL ORDERABLES Final Result Performing Organization Address City/[facility]/ZIP Co de Phone Number [facility] [address] [place] [address], * Pap smear (01/03/2024 11:44 AM EST) Interpretation Negative for intraepithelial lesion or malignancy 01/12/2024 4:48 PM [facility] General Categorization Negative 01/12/2024 4:48 PM [facility] Specimen Adequacy Satisfactory for evaluation, endocervical/gordillo sformation zone component absent 01/12/2024 4:48 PM [facility] Pap Methodology Liquid Based Pap Test 01/12/2024 4:48 PM [facility] Disclaimer The Pap test is a screening test which carries an inherent false negative rate. These test results should be correlated with the patient's clinical findings and history. This Pap test was processed using an automated screening system. Technical cytopathology services provided by [facility], at [address] [place] [id number] (CLIA # [id number]/Sukhjinder Medellin MD, Nps.) 01/12/2024 4:48 PM [facility] Console Pap Interpretation Reported 01/12/2024 4:48 PM [facility] Brushing/Spatula Cervix uteri structure / Unknown 01/03/2024 11:44 AM EST 01/03/2024 11:44 AM EST Faviola [place] [facility] CYTOLOGY ORDERABLES Fin al Result [facility] [address] [place] [address], from Last 3 Months or Most Recently Relevant to Health Maintenance Insurance [facility] [employer] [facility] Care Teams [employer] Collection System Operator Relationship Specialty Start Date End Date Carolee Duncan [facility] [place] [address] PCP - General 02/15/24
--- OUTSIDE RECORDS SUMMARY | 2024-04-25 15:55 | XMS_ITS | Encounter Summary ---
Author Organization [facility] Address [address] [place] [address] Care Team Providers Care Motor Vehicle Or Caravan Salesperson Name Role Phone Rick Lewis Carolee Primary Care Provider [phone] Reason for Visit * Reason Comments Routine Visit Encounter Details Date Type Department Care Team ([facility] st Contact Info) Description 03/27/2024 11:00 AM EST Routine Obstetrics and Gynecology - [address] [phone] Sophia Marin CNM [address] [place] [id number] 23 weeks gestation of (Primary Dx); Encounter for supervision of normal first in second trimester; Encounter for screening of mother Social History Tobacco Use Types Packs/Day Years [...] Sign Reading Time Taken Comments Blood Pressure 128/81 03/27/2024 10:52 AM EST Pulse - - Temperature - - Respiratory Rate - - Oxygen Saturation - - Inhaled Oxygen Concentration - - Weight 98.7 kg (217 lb 9.6 oz) 03/27/2024 10:52 AM EST Height - - Body Mass Index 36.21 01/20/2024 5:03 PM EST documented in this encounter Progress Notes * Sophia Marin CNM - 03/27/2024 11:00 AM EST Subjective Chief Complaint Patient presents with Routine Visit Altagracia Brock is a 24 y.o. at 23w4d with [...] results found for: GLUF , GLUT1 , [id number] , [id number] Assessment/Plan 23 weeks gestation of (Primary) Encounter for supervision of normal first in second trimester - CBC and differential; Future - Glucose tolerance test, 1h gestation; Future Encounter for screening of mother - Treponema pallidum antibody with reflex to RPR and particle agglutination; Future documented in this encounter Plan of Treatment Upcoming Encounters Date Type Department Care Team (Sorin Contact Info) Description 05/11/2024 9:00 AM EDT Routine Obstetrics and [facility]necology - [address] [place] [phone] Faviola [place] [facility] [address] [place] [address] 05/25/2024 9:00 AM EDT Routine Obstetrics and Gynecology - [address] [place] [phone] Rebecca [place]ndra [facility] [address] [place] [address] 06/07/2024 9:00 AM EDT Routine Obstetrics and Gynecology - [facility] [address] [place] [phone] Zoraida Faviola [facility] [address] [place] [address] 06/22/2024 9:15 AM EDT Routine Obstetrics and Gynecology - [facility] [place], [place] [phone] ZoraidaRebeccaFaviola, [facility] [address] [place] [address] 06/28/2024 9:00 AM EDT Routine Obstetrics and Gynecology - [facility] [address] [place], [place] [phone] Faviola [place] [facility] [address] [place] [address] 07/06/2024 9:00 AM EDT Routine Obstetrics and Gynecology - [facility] [address] [place], [place] [phone] Sophia Marin [facility] [address] [place] [address] 07/13/2024 9:00 AM EDT Routine Obstetrics and Gynecology - [address] [phone] Faviola [place] [address] [address] 07/20/2024 9:00 AM EDT Routine Obstetrics and Gynecology - [address] [phone] Faviola [place], [address] [address] documented as of this encounter Results * Treponema pallidum antibody with reflex to RPR and particle agglutination (04/25/2024 10:16 AM EST) T. Pallidum Antibodies Negative Negative LAB CHEMISTRY METHOD 04/25/2024 3:28 PM EST [facility] Blood Venous blood specimen / Unknown Venipuncture / Unknown 04/25/2024 10:16 AM EST 04/25/2024 10:16 AM EST Sophia Marin [facility] BLOOD ORDERABLES Final R esult [facility] [address] [place] [address], documented in this encounter Visit Diagnoses Diagnosis 23 weeks gestation of - Primary Encounter for supervision of normal first in second trimester Encounter for screening of mother documented in this encounter Care Teams Motor Vehicle Or Caravan Salesperson Relationship Specialty Start Date End Date Carolee [place] [address] [place] [address] PCP - General 02/15/24 documented as of this encounter
== END 2024-04-25 14:04 | disposition home or self-care (01) ==
PROVIDERS: PCP Physician Assistant; Visit Provider Physician Assistant
DX: Z3A.27 27 weeks gestation of pregnancy (principal); J45.20 Mild intermittent asthma, uncomplicated

== ENCOUNTER → 2024-04-25 12:59 | Outpatient (BNVA) | payer OTHER, SELFPAY | PROVIDERS: PCP Physician Assistant; Visit Provider Physician Assistant | DX: O26.892 Other specified pregnancy related conditions, second trimester (principal); J45.20 Mild intermittent asthma, uncomplicated; Z3A.27 27 weeks gestation of pregnancy | CPT/HCPCS: 96127; 99202 ==

== ENCOUNTER 2024-10-17 07:44 | Outpatient (AMB) | payer OTHER, SELFPAY ==
--- OUTSIDE RECORDS SUMMARY | 2024-10-17 07:47 | XMS_ITS | Clinical Summary ---
Author Organization [facility] [address] [facility] Address [address] [place] [address] Phone Care Team Providers Care Perinatal Tech Name Role Phone Chanel Monterroso Primary Care Provider Allergies Active Allergy Reactions Criticality Noted Date Comments Shellfish Containing Products Hives High 12/21/2023 Arion like very hard to breathe. Shellfish Derived Hives 11/01/2023 Medications PNV no.95/ferrous fum/folic ac ( ORAL) Vit-Fe Fumarate-FA ( Vitamin) 27-0.8 MG Tab Take 1 Tablet by mouth daily. Active Ventolin HFA 90 mcg/actuation inhaler 04/25/2024 Active Active Problems No known active problems Resolved Problems Problem Noted Date Diagnosed Date Resolved Date Uterine contractions 07/22/2024 025 07/22/2024 07/24/2024 40 weeks gestation of 07/21/2024 09/06/2024 Threatened labor at term 07/07/2024 38 weeks gestation of 07/07/2024 07/24/2024 GBS (group B Streptococcus c arrier), +RV culture, currently 06/25/2024 07/24/2024 Overview (06/25/2024): Will need ABX in labor Influenza A (H1N1) 05/03/2024 Overview (05/03/2024): 04/29/2024- Seen in ER Urinary tract infection in m other during second trimester of 02/02/2024 09/06/2024 Overview (02/02/2024): 01/20/24 treated in the ER with Keflex. 02/02/24 - reports no change in sx, urine culture collected Encounter for supervision of normal first in first trimester 01/23/2024 09/06/2024 Overview (03/15/2024): [facility] [address] [facility] Delivery [facility] 3. Mobile Mommas: 4. Dating criteria: [...] Course: Rh negative state in antepartum period 01/03/2024 09/06/2024 Overview (04/25/2024): Images from the original note were not included. A-Negative 04/25/24 - rhogam at 27w5d Maternal varicella, non-immune 12/23/2023 09/06/2024 Obesity affecting 12/21/2023 09/06/2024 Overview (01/03/2024): Pre-Preg BMI 35.61 HgbA1C and [...] BMI of 50 by 28wks transfer to [facility] DVT prophylaxis- Lovenox if CS and BMI >35 Encounters Date Type Department Care Team Description 09/06/2024 11:00 AM EDT Routine Obst[facility]s [facility]necology [facility] [address] [place] [address] Eveline Muir DO Routine follow-up (Primary Dx); Encounter for IUD insertion 07/22/2024 10:11 AM EDT Anesthesia Event [facility] - [address] [address] Zacarias Ly MD 07/22/2024 6:44 AM EDT - 07/24/2024 2:52 PM EDT Hospital Encounter [address] [phone] Sophia Hernandez DO Vaginal delivery (Primary Dx); state Discharge Disposition: Home or Self Care 07/21/2024 7:15 AM EDT - 07/21/2024 7:47 AM EDT Hospital Encounter [address] [address] Sophia Hernandez DO Discharge Disposition: Home or Self Care 07/20/2024 9:00 AM EDT Routine Obstetrics [facility]cology [facility] [address] [place] [address] Faviola Conway CNM Encounter for supervision of normal first in third trimester (Primary Dx); Obesity affecting in first trimester, unspecified obesity type; 40 weeks gestation of ; Maternal varicella, non-immune; Rh negative state in antepartum period; GBS (group B Streptococcus carrier), +RV culture, currently from Last 3 Months Immunizations Name Administration Dates Next Due Rho (D) Immune Globulin 04/25/2024 Tdap Tetanus diptheria acell ular pertussis (Boostrix; Adacel) 7yo and older 04/25/2024 Varicella live (Varivax) 12mo and older 07/24/19 Surgical History Surgery Date Site/Laterality Comments OTHER SURGICAL HISTORY PROCEDURE: [place] DRAINAGE OVARIAN CYST UNI/BI SPX ABDOMINAL; COMMENT: 2016 TONSILLECTOMY PROCEDURE: HISTORICAL TONSILLECTOMY; COMMENT: as a child Medical History Medical History Date Comments Mild intermittent asthma, uncomplicated DX:Mild intermittent asthma, uncomplicated; COMMENT: albuterol prn Ovarian cyst DX:Ovarian cyst; COMMENT: left - s/p surgery 2016 Influenza A (H1N1) 05/03/2024 04/29/2024- S een in ER Family History Medical History Relation Name Comments [...] drink = 0.6 oz pur e alcohol) Housing Instability Answer Date Recorde d Are you worried that in the next 2 months you may not have stable housing? No 07/22/2024 Food Access & Nutrition Answer Date Rec orded Do you have access to a vari ety of food including fruits and vegetables? Yes 07/22/2024 Access to Healthcare Answer Date Record ed Within the last 3 months, ho w many times did you visit the emergency department for your medical care? 0 07/22/2024 Health Literacy Answer Date Recorded How often do you need to hav e someone help you when you read instructions, pamphlets, or other written material from your doctor or pharmacy? Never 07/22/2024 Caregiver: How often do you need to have someone help you when you read instructions, pamphlets, or other written material from your doctor or pharmacy? Not on file 07/22/2024 Financial Risk Answer Date Recorded How hard is it for you to pa y for the very basics like food, housing, medical care, and air conditioning / heating? Not very hard 07/22/2024 Transportation Answer Date Recorded Has the lack of transportati on kept you from meetings, work, or from getting things needed for daily living? No Has the lack of transportati on kept you from medical appointments or from getting medications? No 07/22/2024 Social Isolation Answer Date Recorded How often do you feel lonely or isolated from th ose around you? Never 07/22/2024 Food Risk Answer Date Recorded Within the past 12 months we worried whether our food would run out before we got money to buy more. Never true 07/22/2024 Within the past 12 months th e food we bought just didn't last and we didn't have money to get more. Never true 07/22/2024 Dependent Care Answer Date Recorded Do you need help finding or paying for care for your loved ones. For example, early childhood education coordinator or elderly care for an older adult? No 07/22/2024 Education Answer Date Recorded Do you think completing more education or training, like finishing a GED, going to college, or learning a trade, would be helpful for you? No 07/22/2024 Employment and Income Answer Date Recor ded During the last four weeks, have you been actively looking for work? No 07/22/2024 Living Situation Answer Date Recorded What is your living situation? 0 07/22/2024 Interpersonal Safety Answer Date Record ed Physical Abuse 07/22/2024 Verbal Abuse 07/22/2024 Comments No Sex and Gender Information Value Date Recorded Sex Assigned at Female 04/30/2024 6:48 AM EST Legal Sex Female 11:41 AM EDT Gender Identity Female 04/30/2024 6:48 AM EST Sexual Orientation Choose not to disclose 2024 6:48 AM EST Occupation Industry Job Start Date Job End Date teacher Not on file Not on file Not on file Obstetrics History Para Term AB IAB SAB Ectopic Multiple Livin g Live Births 1 1 1 0 1 1 Date Outcome GA Total Labor Labor/2nd/3rd Weight Sex Type Anes PTL Hui A1 A5 Name Clin 2024 Term 40w 2d 11h 28m 9h 45m/1h 38m/0h 05m 3570 g (125.9 oz) M Vag-S pont Epidur al N Livin g 9 9 BoyLoniy yudy walters CNM Complications:None Delivery Location[facility] Last Filed Vital Signs Vital Sign Reading Time Taken Comments Blood Pressure 108/70 09/06/2024 10:47 AM EDT pulse: 65 Pulse 84 07/24/2024 8:15 AM EDT Temperature 36.9 C (98.4 F) 07/24/2024 8:15 AM EDT Respiratory Rate 18 07/24/2024 8:15 AM EDT Oxygen Saturation 100% 07/24/2024 8:15 AM EDT Inhaled Oxygen Concentration - - Weight 95.1 kg (209 lb 9.6 oz) 09/07/19 10:47 AM EDT Height 165.1 cm (5' 5 ) 07/07/2024 12:3 8 AM EDT Body Mass Index 34.88 07/07/2024 12:38 AM EDT Plan of Treatment Health Maintenance Due Date Last Done Comments HPV Vaccines (1 - 3-dose series) 01/26/2015 Hepatitis B Vaccines (1 of 3 - 19+ 3-dose series) 01/26/2019 COVID-19 Vaccine ( - 2023-2 5 season) 2023 Cholesterol Screening (Lipid Panel) 12/16/2023 Hepatitis C Screening 12/16/2023 Influenza Vaccine (#1) 2024 Gonorrhea/Chlamydia Screening 01/02/2025 01/03/2024 Social Influencers of Health Screening 07/22/2025 07/22/2024 Cervical Cancer Screening: P ap Smear 01/02/2027 01/03/2024 DTaP,Tdap,and Td Vaccines (2 - Td or Tdap) 04/25/2034 04/25/2024 HIV Screening Completed 12/21/2023 Depression Screening Completed 06/15/2024 Varicella Vaccines Aged Out 07/23/2024 No longer eligible based on patient's age to complete this topic HIB Vaccines Aged Out No longer eligi ble based on patient's age to complete this topic Hepatitis A Vaccines Aged Out No long er eligible based on patient's age to complete this topic IPV Vaccines Aged Out No longer eligi ble based on patient's age to complete this topic MMR Vaccines Aged Out No longer eligi ble based on patient's age to complete this topic Meningococcal ACWY Vaccine Aged Out N o longer eligible based on patient's age to complete this topic Meningococcal B Vaccine Aged Out No l onger eligible based on patient's age to complete this topic Pneumococcal Vaccine: Pediat rics (0 to 5 Years) and At-Risk Patients (6 to 49 Years) Aged Out No longer eligi ble based on patient's age to complete this topic RSV Immunization Patients Un inocencia 20 months Aged Out No longer eligible b ased on patient's age to complete this topic Procedures Procedure Name Priority Date/Time Associated Diagnosis Comments IL INSERTION INTRAUTERINE DEVICE Routine 09/06/2024 12:06 PM EDT Encounter for IUD insertion ECG ANNOTATED 07/25/2024 EXTERNAL ULTRASOUND REPORT 07/25/2024 CBC WITH AUTO DIFFERENTIAL Routine 07/23/2024 11:51 PM EDT CBC AND DIFFERENTIAL Routine 07/23/2024 11:51 PM EDT ECG 12-LEAD STAT 07/23/2024 3:32 AM EDT RHIG EVALUATION Routine 07/23/2024 12:34 AM EDT LAVENDER - EDTA Routine 07/23/2024 12:33 AM EDT SST - GOLD Routine 07/23/2024 12:33 AM EDT EXTRA TUBES Routine 07/23/2024 12:33 AM EDT ECG 12-LEAD STAT 07/22/2024 6:29 PM EDT ANESTHESIA EPIDURAL BLOCK Routine 07/22/2024 10:21 AM EDT CBC WITH AUTO DIFFERENTIAL STAT 07/22/2024 9:40 AM EDT TREPONEMA PALLIDUM ANTIBODY WITH REFLEX TO RPR AND PARTICLE AGGLUTINATION STAT 07/22/2024 9:40 AM EDT TYPE AND SCREEN STAT 07/22/2024 9:40 AM EDT CBC AND DIFFERENTIAL STAT 07/22/2024 9:40 AM EDT PAP SMEAR Routine 01/03/2024 11:44 AM EST Screening for cervical cancer CHLAMYDIA TRACHOMATIS AND NEISSERIA GONORRHOEAE PCR Routine 01/03/2024 11:44 AM EST Screening examination for STD (sexually transmitted disease) from Last 3 Months or Most Recently Relevant to Health Maintenance Results * IL INSERTION INTRAUTERINE DEVICE (09/06/2024 12:06 PM EDT) Eveline Philippe DO - 09/06/2024 12:06 PM EDT Eveline Muir DO 09/06/2024 12:10 PM IUD Insertion Date/Time: 09/06/2024 12:06 PM Performed by: Eveline Muir DO Authorized by: Eveline Muir DO Informed Consent: Health status cleared: Yes Procedure/treatment, purpose, treatment alternatives, risks/potential complications and benefits explained: yes Risk/complications/benefits details: Bleeding, discomfort, inability to place, malposition and perforation Patient questions answered: yes Patient agrees, verbalizes understanding, and wants to proceed: yes Consent given by: Patient Informed consent discussion completed by Physician/MERI with patient: Written; patient signed and dated; copy to patient Pre Procedure: Negative urine test: Not indicated Gonorrhea/chlamydia test: Not indicated Uterine position: Midline Insertion Procedure: Speculum placed in vagina and cervix prepped with: Betadine Cervix stablized: With allis Cervical dilation: no Uterus sounded: yes Uterus sound depth (cm): 8 IUD type: Mirena IUD insertion successful: yes Medication Administration: 52 mg levonorgestreL 21 mcg/24hr (up to 8 yrs) 52 mg Complications: no Strings trimmed: yes Post-procedure: Patient tolerated procedure well: yes Post procedure instructions given: yes us Eveline Muir DO IN CLINIC/BEDSIDE ORDERABLES Final Result * ECG-Annotated (07/25/2024) us Provider Onbase MD ECG ORDERABLES Final Result * External Ultrasound Report (07/25/2024) Anatomical Region Laterality Modality Ultrasound us Provider Onbase MD IMG US PROCEDURES Final Resul t * (ABNORMAL) CBC auto differential (07/23/2024 11:51 PM EDT) Only the most recent of2 resultswithin the time period is included. WBC 16.5(H) 4.8 - 10.8 K/mcL LAB HEMETOLOGY METHOD 07/24/2024 12:03 AM [facility] RBC 3.70(L) 3.80 - 4.80 M/mcL LAB HEMETOLOGY METHOD 07/24/2024 12:03 AM [facility] Hemoglobin 11.3(L) 11.5 - 16.0 g/dL LAB HEMETOLOGY METHOD 07/24/2024 12:03 AM [facility] Hematocrit 33.7(L) 35.0 - 47.0 % LAB HEMETOLOGY METHOD 07/24/2024 12:03 AM [facility] MCV 90.8 79.0 - 98.0 FL LAB HEMETOLOGY METHOD 07/24/2024 12:03 AM [facility] MCH 30.5 27.0 - 32.0 pcg LAB HEMETOLOGY METHOD 07/24/2024 12:03 AM [facility] MCHC 33.5 32.0 - 37.0 g/dL LAB HEMETOLOGY METHOD 07/24/2024 12:03 AM [facility] RDW 14.6 11.0 - 15.0 % LAB HEMETOLOGY METHOD 07/24/2024 12:03 AM [facility] Platelets 184 130 - 400 K/mcL LAB HEMETOLOGY METHOD 07/24/2024 12:03 AM [facility] MPV 11.2(H) 7.0 - 11.0 FL LAB HEMETOLOGY METHOD 07/24/2024 12:03 AM [facility] NRBC 0.0 <1.0 % LAB HEMETOLOGY METHOD 07/24/2024 12:03 AM [facility] NRBC Absolute 0.00 <0.10 K/mcL LAB HEMETOLOGY METHOD 07/24/2024 12:03 AM [facility] Neutrophils Relative 74.3 % LAB HEMETOLOGY METHOD 07/24/2024 12:03 AM [facility] Lymphocytes Relative 15.9 % LAB HEMETOLOGY METHOD 07/24/2024 12:03 AM [facility] Monocytes Relative 6.2 % LAB HEMETOLOGY METHOD 07/24/2024 12:03 AM [facility] Eosinophils Relative 0.4 % LAB HEMETOLOGY METHOD 07/24/2024 12:03 AM [facility] Basophils Relative 0.3 % LAB HEMETOLOGY METHOD 07/24/2024 12:03 AM [facility] Immature Granulocytes Relative 2.9 % LAB HEMETOLOGY METHOD 07/24/2024 12:03 AM [facility] Neutrophils Absolute 12.27(H) 1.50 - 7.00 K/mcL LAB HEMETOLOGY METHOD 07/24/2024 12:03 AM EDT [facility] Lymphocytes Absolute 2.62 1.00 - 5.00 K/mcL LAB HEMETOLOGY METHOD 07/24/2024 12:03 AM EDT [facility] Monocytes Absolute 1.03(H) 0.20 - 1.00 K/mcL LAB HEMETOLOGY METHOD 07/24/2024 12:03 AM EDT [facility] Eosinophils Absolute 0.07 0.00 - 0.50 K/[facility] LAB HEMETOLOGY METHOD 07/24/2024 12:03 AM EDT [facility] Basophils Absolute 0.05 0.00 - 0.20 K/[facility] LAB HEMETOLOGY METHOD 07/24/2024 12:03 AM EDT [facility] Immature Granulocytes Absolute 0.48(H) 0.00 - 0.03 K/[facility] LAB HEMETOLOGY METHOD 07/24/2024 12:03 AM EDT [facility] Blood Venous blood specimen / Unknown Venipuncture / Unknown 07/23/2024 11:51 PM EDT 07/23/2024 11:59 PM EDT us Sophia Hernandez DO LAB BLOOD ORDERABLES Final Result [facility] [address] [place] [address], * ECG 12 lead (07/23/2024 3:32 AM EDT) Only the most recent of2 resultswithin the time period is included. Ventricular Rate ECG 91 BPM GEMUSE Atrial Rate 91 BPM GEMUSE P-R Interval 160 ms GEMUSE QRS Duration 78 ms GEMUSE Q-T Interval 350 ms GEMUSE QTc 430 ms GEMUSE P Wave Rosamond 50 degrees GEMUSE R [place] 37 degrees GEMUSE T [place] 16 degrees GEMUSE ECG Interpretation Normal sinus rhythm Possible Inferior infarct Abnormal ECG When compared with ECG of 22-JUL-2024 18:29, (unconfirmed ) Vent. rate has decreased Confirmed by ALONSO HAILE ([id number]) on 07/23/2024 8:40:25 AM GEMUSE 07/23/2024 3:32 AM EDT 07/23/2024 8:40 AM EDT Sophia Hernandez DO ECG ORDERABLES Final Resu lt GEMUSE * RhIG evaluation (07/23/2024 12:34 AM EDT) Bleed Screen Negative 07/29/2024 9:19 AM EDT [facility] RhIG Candidate 1 Vial 300 mcg 07/29/2024 9:19 AM EDT [facility] Blood Venous blood specimen / Unknown Venipuncture / Unknown 07/23/2024 12:34 AM EDT 07/23/2024 12:39 AM EDT Sophia Hernandez DO LAB BLOOD BANK TEST ORDERA BLES Edited Result - Final Performing Organization Address [facility] de Phone Number [facility] [address] [place] [address], [place] [phone] * SST tube (07/23/2024 12:33 AM EDT) Extra Tube Hold for add-ons. 07/23/2024 2:01 AM EDT [facility] Comment:Auto resulted. Blood Venous blood specimen / Unknown 07/23/2024 12:33 AM EDT 07/23/2024 12:40 AM EDT Sophia Hernandez DO LAB BLOOD ORDERABLES Final Result Performing Organization Address [facility] Co de Phone Number [facility] [address] [place] [address], [place] [phone] * Lavender tube (07/23/2024 12:33 AM EDT) Extra Tube Hold for add-ons. 07/23/2024 2:01 AM EDT [facility] Comment:Auto resulted. Blood Venous blood specimen / Unknown 07/23/2024 12:33 AM EDT 07/23/2024 12:40 AM EDT us Sophianeris Hernandze DO LAB BLOOD ORDERABLES Final Result [facility] [address] [place] [address], [place] [phone] * Epidural Block (07/22/2024 10:21 AM EDT) Narrative Zacarias Ly MD - 07/22/2024 10:21 AM EDT Zacarias Ly MD 07/22/2024 10:36 AM Epidural Block Patient location during procedure: OB Start time: 07/22/2024 10:21 AM End time: 07/22/2024 10:27 AM Reason for block: labor epidural Staffing Performed: anesthesiologist Anesthesiologist: Zacarias Ly MD Performed by: Zacarias Ly MD Authorized by: Zacarias Ly MD Preanesthetic Checklist Completed: patient identified, IV checked, risks and benefits discussed, surgical consent, monitors and equipment checked, pre-op evaluation and timeout performed Epidural Patient Position: sitting Prep: Sterile technique including hat / mask / sterile gloves utilized. Monitoring: heart rate and continuous pulse ox (NiBP) Approach: midline Vertebral Space: L3-L4 Needle Needle type: Tuohy Needle gauge: 17 G Needle length: 3.5 Needle insertion depth: 7 cm Catheter at skin depth: 12 cm Test dose: lidocaine 1.5% with epinephrine 1-to-200,000 and negative Assessment Events: incremental injection every 5 mL Additional Notes Sterile technique including hat, mask, sterile gloves, sterile drape used. Local: Lido 1% - 3 ml ___1__ attempt(s) Level: L 3-4 Initial bolus: 10cc 0.1% bupiv with 2cc fent Indication: Labor Analgesia Additional Monitoring: NIBP Negative paresthesia on insertion of needle or catheter Negative aspiration of blood and/or CSF per epidural catheter No patient symptoms on injection of local anesthetic Sterile Tegaderm dressing with tape reinforcement applied. Zacarias Ly MD ANESTHESIA ORDERABLES Final Re sult * Treponema pallidum antibody with reflex to RPR and particle agglutination (07/22/2024 9:40 AM EDT) [facility] T. Pallidum Antibodies Negative Negative LAB CHEMISTRY METHOD 07/22/2024 10:44 AM EDT [facility] Blood Venous blood specimen / Unknown Venipuncture / Unknown 07/22/2024 9:40 AM EDT 07/22/2024 9:45 AM EDT Faviola Conway [facility] BLOOD ORDERABLES Final Result [facility] [address] [place] [address], [place] [phone] * Type and screen (07/22/2024 9:40 AM EDT) [facility] ABO Group A 07/29/2024 9:17 AM EDT [facility] Rh Type Negative 07/29/2024 9:17 AM EDT [facility] Antibody Screen Negative 07/29/2024 9:17 AM EDT [facility] Blood Venous blood specimen / Unknown Venipuncture / Unknown 07/22/2024 9:40 AM EDT 07/22/2024 9:45 AM EDT Faviola Conway [facility] BLOOD BANK TEST ORDERAB LES Edited Result - Final [facility] [address] [place] [address], [place] [phone] * Chlamydia trachomatis and Neisseria gonorrhoeae molecular study (01/03/2024 11:44 AM EST) Neisseria gonorrhoeae PCR Negative Negative LAB MOLECULAR DIAGNOSTICS METHOD 01/05/2024 11:32 AM EST [facility] Chlamydia trachomatis PCR Negative Negative LAB MOLECULAR DIAGNOSTICS METHOD 01/05/2024 11:32 AM EST [facility] Swab Vaginal structure / Unknown Non-blood Collection / Unknown 01/03/2024 11:44 AM EST 01/05/2024 8:50 AM EST Faviola [facility] MICROBIOLOGY - GENERAL ORDERABLES Final Result [facility] [address] [place] [id number], * Pap smear (01/03/2024 11:44 AM EST) Interpretation Negative for intraepithelial lesion or malignancy 01/12/2024 4:48 PM [facility] General Categorization Negative 01/12/2024 4:48 PM [facility] Specimen Adequacy Satisfactory for evaluation, endocervical/gordillo sformation zone component absent 01/12/2024 4:48 PM [facility] Pap Methodology Liquid Based Pap Test 01/12/2024 4:48 PM [facility] Disclaimer The Pap test is a screening test which carries an inherent false negative rate. These test results should be correlated with the patient's clinical findings and history. This Pap test was processed using an automated screening system. Technical cytopathology services provided by [facility], at [address] [place] [id number] (CLIA # [id number]/Sukhjinder Medellin MD, Leather Grader.) 01/12/2024 4:48 PM [facility] Console Pap Interpretation Reported 01/12/2024 4:48 PM EST [facility]) [facility] Brushing/Spatula Cervix uteri structure / Unknown 01/03/2024 11:44 AM EST 01/03/2024 11:44 AM EST us Faviola Conway [facility] CYTOLOGY ORDERABLES Fin al Result [facility] [address] [place] [address], from Last 3 Months or Most Recently Relevant to Health Maintenance Insurance PLAN Advance Directives * Full Code - Confirmed (Latest Code Status on File) Date Activated Date Inactivated Comments 07/22/2024 9:23 AM 07/24/2024 4:[address] [facility] was ascertained in the following way: Code status discussion: discussion with patient To update the patient's code status, place a code status order. Do not modify or discontinue any currently active code status orders. * Full Code - Confirmed Date Activated Date Inactivated Comments 07/22/2024 9:23 AM 07/22/2024 9:[address] [facility] was ascertained in the following way: Code status discussion: discussion with patient To update the patient's code status, place a code status order. Do not modify or discontinue any currently active code status orders. * Full Code - Default Date Activated Date Inactivated Comments 07/21/2024 7:27 AM 07/21/2024 10:01 AM This is ord er is used when code status has not been discussed with the patient, or code status is otherwise unknown/unconfirmed To update the patient's code status, place a code status order. Do not modify or discontinue any currently active code status orders. * Full Code - Default Date Activated Date Inactivated Comments 07/07/2024 12:53 AM 07/07/2024 3:23 AM This is ord er is used when code status has not been discussed with the patient, or code status is otherwise unknown/unconfirmed To update the patient's code status, place a code status order. Do not modify or discontinue any currently active code status orders. Care Teams Perinatal Tech Relationship Specialty Start Date End Date Chanel Monterroso PA [address] [place] [phone] PCP - General Physician Mailing Manager 04/30/24
--- NOTE | 2024-10-17 07:55 | A.OFFPC_ITS ---
Vital Signs 10/17/24 08:02 Height 5 ft 5 in Weight 214 lb 2 oz BMI 35.6 BP 110/74 Blood Pressure Location Lt brachial Position Sitting Respiration 12 Pulse 87 Pulse Source Pulse Oximeter Temp 98.6 F Temp Source Oral Pulse Oximetry (%) 99 Oxygen Delivery Method Room Air Intake Visit Reasons: physical exam Intake Note: Physical Ship'S Officer Required: No Allergies No Known Allergies Allergy (Verified 10/17/24 08:01) Medication List - Last Reconciled 10/17/24 by Chanel Monterroso PA-C albuterol sulfate 90 mcg/actuation 2 puffs inhalation Q6H PRN inhalational spacing device (Aerochamber MV spacer) As directed Tobacco use date assessed: 10/17/24 Dental Screening Dental Screen Date: 04/25/24 HPI physical exam HPI Details Patient is a 24-year-old female who presents today for a physical exam. Real Estate Portfolio Manager: Since I last saw her she gave to a baby boy in June. Reports a delivery as uncomplicated vaginal delivery. States that she is up-to-date with her OBGYN. Recently started on a new OCP in August and states that since then she has had increased frequency of vaginal bleeding with a longer lasting periods. She states the last month she has only not had bleeding for about 1 week out of the last 3 weeks. She put a phone call in to family resource management professor. Overall feeling well. Denies any anxiety or depression. Denies any change in her family history. She is remaining active without any difficulty. FOR[facility]LY [facility], [facility] Medical History (Updated 10/17/24 @ 08:15 by Chanel Monterroso PA-C) Obesity (BMI 30.0-34.9) Family history of thyroid disease Mild intermittent asthma in adult without complication Left ovarian cyst Surgical History S/P ovarian cystectomy Family History Mother Asthma Sister Asthma Acquired hypothyroidism Social History (Updated 04/25/24 @ 13:42 by Payal Lin CMA) Housing: House Alcohol intake: never Patient Tobacco Use Status: Never used Tobacco e-Cigarette/Vaping Use: Never Used Second Hand Smoke Exposure: No service: No Current occupational status: employed Current occupation: Teacher Current occupational exposures/hazards: No Cognitive needs: No Hearing needs: No Vision needs: Yes (glasses) Female Reproductive History Menstrual Age of Menarche: 9 Questionnaire Thrive Questionnaire Date Thrive assessed: 04/23/24 I am a: Patient What is your living situation today?: I have a steady place to live Within the past 12 months, did the food you bought not last and you didn't have the money to get more?: Never true Within the past 12 months, did you worry whether your food would run out before you got money to buy more?: Never true Do you have trouble paying for medicines?: No Do you have trouble getting transportation to medical appointments?: No Do you have trouble paying your heating and electricity bill?: No Do you have trouble taking care of your child, family member or friend?: No Do you have trouble with day-to-day activities such as bathing, preparing meals, shopping, managing finances, etc.?: No Are you currently unemployed and looking for a job?: No Are you interested in more education?: No Please select the resources that you would like help with: None Currently or been in a relationship where the following occur: No concerns reported THRIVE Score: 0 AUDIT C Alcohol Use Questionnaire (AUDIT-C) 1. How often do you have a drink containing alcohol?: Never 3. How often do you have six or more drinks on one occasion?: Never Total Score: 0 DEEPTHI-7 AMB Questionnaire DEEPTHI-7 Date DEEPTHI - 7 assessed: 04/25/24 Source: Developed by Drs. Michael Sinclair, Nohemy Moreno, Dewayne Bueno and colleagues, with an educational power from [employer]. Physical exam (Primary Care) Tobacco/Smoking Status: Tobacco use Status Tobacco use date assessed 04/25/24 10/17/24 07:58 Patient Tobacco Use Status Never used Tobacco 10/17/24 07:58 e-Cigarette/Vaping Use Never Used 10/17/24 07:58 Thrive Assessment: Date of Thrive Assessment Date Thrive assessed 04/23/24 10/17/24 07:58 Currently or been in a relationship where the following occur: No concerns reported Const Orientation/consciousness: patient oriented x3 HENMT Ears: hearing grossly normal bilaterally and TM's normal bilaterally General nose exam: No nasal polyps present Face and sinus: Yes sinuses nontender Mouth: Normal oral and palatal mucosa present Eyes Pupils: Equal, round and reactive pupils present EOM: EOMs intact bilaterally Neck Neck: Yes full ROM and Yes no lymphadenopathy Thyroid: Thyroid normal Chest Chest palpation & inspection: normal inspection of the chest Resp Auscultation: clear to auscultation bilaterally Cardio Rate: regular rate Rhythm: regular rhythm Heart sounds: S1 normal heart sound present and S2 normal heart sound present Peripheral pulses: Peripheral pulses 2+ throughout GI Other: Soft, nontender Auscultation: normal bowel sounds Rectal Exam - Female: deferred General: Yes no CVA tenderness Back/Spine/Pelvis Other: Nontender Back: no CVA tenderness Skin General skin exam: no rashes or lesions noted Neuro General: patient oriented x3, gait normal, CN's II-XI intact bilaterally and deep tendon reflexes 2+ bilaterally Cranial nerves: Yes Equal, round and reactive pupils present Motor exam (neuro): 5/5 motor strength present throughout Sensory Exam: double simultaneous stimulation for sensation normal Coordination: [id number]-pm-tjur test normal and Romberg test negative Extrem General: Yes normal to inspection and Yes full ROM Psych Affect: normal affect Attitude: cooperative Thought process: Normal thought process present Thought content: Normal thought content present Insight: Good insight present (Psych) Judgement: Good judgement present (Psych) Coding Level of Care Code Est Pt Prev Care 18-39y(75197) Diagnoses Routine general medical examination at a health care facility Z00.00 Menorrhagia N92.0 Assessment & Plan Assessment & Plan (1) Routine general medical examination at a health care facility: Code(s): Z00.00 - Encounter for general adult medical examination without abnormal findings Plan: Labs ordered. We will follow up pending test results (2) Menorrhagia: Code(s): N92.0 - Excessive and frequent menstruation with regular cycle Category: Medical Plan: She will be following with family resource management professor. She will let me know if anything worsens or changes or persist despite contacting them. Orders: Orders Vitamin B12 and Folate Today N92.0 - Excessive and frequent menstruation with regular cycle IRON PROFILE Today N92.0 - Excessive and frequent menstruation with regular cycle
[2024-10-17 08:02] VITALS: BP 110/74; PULSE 87; RESP 12; TEMP 37; O2SAT 99; BMI 35.6
== END 2024-10-17 08:19 | disposition home or self-care (01) ==
LOC: HO.HMCFM 07:45
PROVIDERS: PCP Physician Assistant; Visit Provider Physician Assistant
DX: Z00.00 Encounter for general adult medical examination without abnormal findings (principal); N92.0 Excessive and frequent menstruation with regular cycle

== ENCOUNTER → 2024-10-17 07:44 | Outpatient (BNVA) | payer OTHER, SELFPAY | PROVIDERS: PCP Physician Assistant; Visit Provider Physician Assistant | DX: Z00.00 Encounter for general adult medical examination without abnormal findings (principal); N92.0 Excessive and frequent menstruation with regular cycle | CPT/HCPCS: 99395 ==